=== PATIENT | female | born 1990 | race Caucasian/White ===

== ENCOUNTER 2019-07-25 09:03 | Emergency (ER) | payer MEDICAID ==
--- NOTE | 2019-07-25 10:06 | ED Physician Documentation ---
PD HPI HEENT - Stated complaint Stated Complaint: LT EAR BLEEDING - Chief complaint Chief Complaint: Heent - History obtained from History obtained from: Patient, Friend - History of Present Illness Timing - onset: How many weeks ago (3) Timing - duration: Weeks (3) Timing - details: Gradual onset, Still present Location: Left ear Worsens: Other (q-tip the ear) Associated symptoms: Congestion, Headache, Other (tooth ache on the other side) Similar symptoms before: Diagnosis (OE and OM) Recently seen: Not recently seen - Additional information Additional information: 29-year-old female who is 7 weeks went swimming about 1 month ago with her family and following that she began to get some issue with drainage from her left ear. She is had this happen to her previously with exposure to water. She states that she has some very tender area if she tries to stick a Q-tip deep in her left ear and so she has been avoiding this. She has been having some drainage and some foul smell on her pillow. Today she woke up with blood from the left ear. She acknowledges some muffled hearing.She is not otherwise having symptoms associated with her with the exception of some morning sickness and she has not had an ultrasound with this . Review of Systems Constitutional: reports: Fatigue. denies: Fever Eyes: denies: Decreased vision Ears: reports: Loss of hearing, Ear pain, Drainage/discharge Nose: reports: Congestion. denies: Rhinorrhea / runny nose Throat: denies: Sore throat Cardiac: denies: Chest pain / pressure Respiratory: denies: Dyspnea, Cough GI: reports: Nausea, Vomiting : denies: Dysuria, Frequency PD PAST MEDICAL HISTORY - Present Medications Home Medications: Ambulatory Orders Medication Instructions Recorded Confirmed Amoxicillin 875 mg PO BID #14 tablet 07/25/19 Neomycin/Polymyx/Hc Otic Drops 4 drops LEFTEAR TID #1 bottle 07/25/19 [Cortisporin Ear Susp] - Allergies Allergies/Adverse Reactions: Allergies Allergy/AdvReac Type Severity Reaction Status Date / Time oxycodone Allergy Emesis Verified 07/25/19 09:34 - Social History Smoking Status: Current every day smoker PD ED PE NORMAL - Vitals Vital signs reviewed: Yes (hypertensive ) - General General: Alert and oriented X 3, No acute distress, Well developed/nourished - HEENT HEENT: Atraumatic, PERRL, EOMI, Other (The right TM and canal are normal The left canal has some proud flesh protruding with evidence of recent bleeding. The fleshy mass obscurs the canal and the TM is not visualized. ) - Neck Neck: Supple, no meningeal sign, No bony TTP - Cardiac Cardiac: RRR, No murmur - Respiratory Respiratory: No respiratory distress, Clear bilaterally - Abdomen Abdomen: Soft, Non tender - Back Back: No CVA TTP, No spinal TTP - Derm Derm: Normal color, Warm and dry, No rash - Extremities Extremities: No deformity, No edema - Neuro Neuro: Alert and oriented X 3, dot net developer 2-12 intact, No motor deficit, No sensory deficit, Normal speech Eye Opening: Spontaneous Motor: Obeys Commands Verbal: Oriented GCS Score: 15 - Psych Psych: Normal mood, Normal affect Results - Vitals Vitals: Vital Signs - 24 hr 07/25/19 09:27 Temperature 36.2 C L Heart Rate 73 Respiratory 16 Rate Blood Pressure 142/93 H O2 Saturation 98 Oxygen O2 Source Room air Procedures - Bedside sono Bedside sono by EMP: With use of bedside ultrasound the uterus is imaged there is a gestational sac measuring 9 weeks there is a pole and I believe there is heart rate as well. - IVC sono (time) 1000 Bedside IVC sono: IVC measures (cm) (1.55), Euvolemia PD MEDICAL DECISION MAKING - ED course Complexity details: reviewed results, re-evaluated patient, considered differential, d/w patient, d/w family ED course: 29 y/o female with left ear pain has a fleshy mass protruding from the ear canal. Not just an OE on exam. I suspect this is something the patient will need to have removed and we will treat with drops for OE and refer to ENT for follow up. She has tooth ache on the right as well and we will place her on some amoxicillin as well. Departure - Departure Disposition: 01 Home, Self Care Clinical Impression: Growth of ear canal, Pain, dental Otitis externa Qualifiers: Otitis externa type: unspecified type Chronicity: acute Laterality: left Qualified Code(s): H60.502 - Unspecified acute noninfective otitis externa, left ear Condition: Stable Instructions: ED Tooth Pain, ED Otitis Externa Follow-Up: [facility] [Provider Group] Prescriptions: Amoxicillin 875 mg PO BID #14 tablet Neomycin/Polymyx/Hc Otic Drops [Cortisporin Ear Susp] 4 drops LEFTEAR TID #1 bottle Comments: Today on exam there is a fleshy "mass" in the ear canal and this will need to be addressed by the ENT. You will need to make an appointment with ENT for the coming week.
[2019-07-25 10:26] VITALS: BP 166/104
== END 2019-07-25 10:25 | disposition home or self-care (01) ==
LOC: ED 09:03
DX: O99.89 Other specified diseases and conditions complicating pregnancy, childbirth and the puerperium (principal); H93.8X2 Other specified disorders of left ear; H60.502 Unspecified acute noninfective otitis externa, left ear; O99.611 Diseases of the digestive system complicating pregnancy, first trimester; K08.89 Other specified disorders of teeth and supporting structures; O99.331 Smoking (tobacco) complicating pregnancy, first trimester; Z3A.09 9 weeks gestation of pregnancy
CPT/HCPCS: 99282; 99284

== ENCOUNTER 2019-08-07 12:46 | Outpatient (CLI) | payer MEDICAID ==
--- NOTE | 2019-08-07 15:50 | Ultrasound Report ---
Reason: TEST POSITIVE Procedure Date: 08/07/2019 Accession Number: [id number] / [id number] Procedure: US - OB First Trimester CPT Code: FULL RESULT: EXAM: FIRST TRIMESTER OBSTETRIC ULTRASOUND (Less than 11 weeks) EXAM DATE: 08/07/2019 01:45 PM. CLINICAL HISTORY: test positive. LMP: Unknown. COMPARISONS: None. TECHNIQUE: Transabdominal and transvaginal ultrasound examination with static image documentation. CLINICAL DATES: EGA 9 weeks 6 days with KAREN 03/05/2020 based on LMP. ASSESSMENT: Gestational Sac: Single intrauterine. Mean gestational sac diameter: 48.6 mm = 10 weeks 4 days. Embryo: CRL (crown-rump length) 43.3 mm = 11 weeks 1 day. Cardiac activity: 163 beats per minute. Yolk sac: 4 mm. Amniotic fluid: Not accurately assessed at this gestational age. Early placenta: Not visible at this gestational age. Other: No perigestational fluid collection demonstrated. MATERNAL STRUCTURES: Uterus: Anteverted/Retroverted. Unremarkable. Cervix: Closed. Right Ovary/Adnexa: The ovary measures 2.1 x 1.3 x 1.5 cm, volume 2.2 cc. Unremarkable. Left Ovary/Adnexa: The ovary measures 3.0 x 2.3 x 1.9 cm, volume 10.4 cc. There is a benign-appearing nonvascular round left ovarian cyst measuring 17 x 17 x 19 mm diameter. Free Fluid: None. Other: None. IMPRESSION: 1. Single viable intrauterine at EGA 11 weeks 1 day with KAREN 02/25/2020 based on crown-rump length, which is almost 2 weeks greater than clinical dates. 2. Assigned dating is KAREN 02/25/2020 based on current ultrasound. RADIA
== END 2019-08-07 12:47 | disposition home or self-care (01) ==
LOC: DI 12:46
PROVIDERS: ATTEND Obstetrics & Gynecology
DX: Z32.01 Encounter for pregnancy test, result positive (principal)
CPT/HCPCS: 76801

== ENCOUNTER 2019-08-19 08:00 | Outpatient (CLI) | payer MEDICAID ==
[2019-08-19 22:19] LABS: TRICHOMONAS VAGINALIS DNA NEGATIVE (NEGATIVE)
== END 2019-08-19 23:59 | disposition home or self-care (01) ==
LOC: LAB.R 08:00
PROVIDERS: ATTEND Obstetrics & Gynecology
DX: Z12.4 Encounter for screening for malignant neoplasm of cervix (principal)
CPT/HCPCS: 87491; 87591; 87661

== ENCOUNTER 2019-08-28 14:42 | Outpatient (CLI) | payer MEDICAID | END 2019-08-28 14:43 | disposition home or self-care (01) | LOC: LAB 14:42 | PROVIDERS: ATTEND Obstetrics & Gynecology | DX: O34.211 Maternal care for low transverse scar from previous cesarean delivery (principal); Z13.79 Encounter for other screening for genetic and chromosomal anomalies; Z12.4 Encounter for screening for malignant neoplasm of cervix ==

== ENCOUNTER 2019-09-02 13:36 | Outpatient (CLI) | payer MEDICAID ==
[2019-09-02 19:04] LABS: BASOPHILS % (AUTO) 0.4 %; EOSINOPHILS # (AUTO) 0.1 10^3/uL (0.0-0.7); EOSINOPHILS % (AUTO) 0.8 %; HGB - HEMOGLOBIN 11.2 g/dL (12.0-16.0); LYMPHOCYTES # (AUTO) 2.1 10^3/uL (1.5-3.5); LYMPHOCYTES % (AUTO) 24.6 %; MEAN CORPUSCULAR HEMOGLOBIN 29.5 pg (27.0-31.0); MEAN CORPUSCULAR HGB CONC 32.8 g/dL (32.0-36.0); MEAN CORPUSCULAR VOLUME 89.7 fL (81.0-99.0); MEAN PLATELET VOLUME 8.9 fL (7.9-10.8); MONOCYTES # (AUTO) 0.4 10^3/uL (0.0-1.0); MONOCYTES % (AUTO) 4.9 %; NEUTROPHILS # (AUTO) 5.9 10^3/uL (1.5-6.6); NEUTROPHILS % (AUTO) 68.9 %; PLT - PLATELET COUNT 323 10^3/uL (130-450); RED CELL DISTRIBUTION WIDTH 12.8 % (12.0-15.0); WHITE BLOOD COUNT 8.6 x10^3/uL (4.8-10.8)
[2019-09-03 12:44] LABS: HEPATITIS B SURFACE ANTIGEN NON-REACTIVE (NON-REACTIVE)
[2019-09-03 15:26] LABS: HIV AG/AB 4TH GEN NON-REACTIVE (NON-REACTIVE)
== END 2019-09-02 23:59 | disposition home or self-care (01) ==
LOC: LAB.N 13:36
PROVIDERS: ATTEND Obstetrics & Gynecology
DX: O34.211 Maternal care for low transverse scar from previous cesarean delivery (principal); Z13.79 Encounter for other screening for genetic and chromosomal anomalies
CPT/HCPCS: 36415; 81599; 85025; 86762; 86850; 86900; 86901; 87340; 87389

== ENCOUNTER 2019-09-17 13:20 | Outpatient (CLI) | payer MEDICAID | END 2019-09-17 23:59 | disposition home or self-care (01) | LOC: LAB.R 13:20 | PROVIDERS: ATTEND Family Medicine | DX: H60.62 Unspecified chronic otitis externa, left ear (principal) | CPT/HCPCS: 87070; 87075; 87205 ==

== ENCOUNTER 2019-10-09 14:09 | Outpatient (CLI) | payer MEDICAID ==
--- NOTE | 2019-10-12 10:11 | Ultrasound Report ---
Reason: HX OF LEEP Procedure Date: 10/09/2019 Accession Number: [id number] / [id number] Procedure: US - OB Transvaginal CPT Code: Final Report FULL RESULT: EXAM: LIMITED OBSTETRICAL ULTRASOUND EXAM DATE: 10/09/2019 03:10 PM. CLINICAL HISTORY: HX OF LEEP. COMPARISON: OB FIRST TRIMESTER 08/07/2019 12:52 PM. TECHNIQUE: Real-time sonographic evaluation of the fetus performed by the slip cover sewer. Multiple phlebotomy services representative static images were saved for review. Additional transvaginal imaging to more accurately evaluate the cervix. DATING: Established EGA 20 weeks 1 day with KAREN 02/25/2020. GENERAL EVALUATION [place] . Cardiac activity: 158 bpm. movement: Visualized. Presentation: Variable. Placenta: Posterior position without previa. Amniotic fluid: Subjectively normal. ANATOMY Limited evaluation; no gross abnormality. MATERNAL STRUCTURES Cervix is closed measuring 3.3 cm length transvaginally. IMPRESSION: 1. [place] live intrauterine with gestational age 20 weeks 1 day based on established KAREN. 2. Cervix is closed measuring 3.3 cm. RADIA
== END 2019-10-09 14:10 | disposition home or self-care (01) ==
LOC: DI 14:09
PROVIDERS: ATTEND Nurse Practitioner Obstetrics & Gynecology
DX: Z98.890 Other specified postprocedural states (principal)
CPT/HCPCS: 76817

== ENCOUNTER 2019-11-27 10:25 | Outpatient (CLI) | payer MEDICAID ==
--- NOTE | 2019-11-29 22:36 | Ultrasound Report ---
Reason: SCREENING Procedure Date: 11/27/2019 Accession Number: [id number] / [id number] Procedure: US - OB Detailed Eval CPT Code: Final Report FULL RESULT: EXAM: COMPLETE OBSTETRICAL ULTRASOUND EXAM DATE: 11/27/2019 10:29 AM. CLINICAL HISTORY: anatomic survey. COMPARISON: 10/09/2019. TECHNIQUE: Real-time sonographic evaluation of the fetus performed by the survey chief. Multiple client care representative static images were saved for review. Additional transvaginal imaging to more accurately evaluate cervical length/placental position/etc. DATING: Established EGA 27 weeks 1 day with KAREN 02/25/2020 based on stated dates. EGA 25 weeks 4 days with KAREN 03/05/2020 based on LMP. EGA 26 weeks 6 days with KAREN 02/27/2020 based on the current ultrasound. GENERAL EVALUATION [place] . Cardiac activity: 140 bpm. movement: Visualized. Presentation: Cephalic. Placenta: Posterior position. No evidence for previa. Umbilical cord: 3 vessel cord. Central placental cord origin. Amniotic fluid: Subjectively normal. MVP 4.7 cm. BIOMETRY Bi-Parietal Diameter (BPD): 6.4 cm, 26 weeks 0 days Head Circumference (HC): 24.2 cm, 26 weeks 2 days Abdominal Circumference (AC): 23.4 cm, 27 weeks 5 days Femur Length (FL): 5.0 cm, 26 weeks 6 days Estimated Weight: 1036 g, 38.5 percentile for 27 weeks 1 day. ANATOMY The intracranial structures, profile, face/nose/lips, 4 chamber heart and outflow tracts, stomach, diaphragm, kidneys, and bladder were visualized and demonstrate no abnormality. Images of abdominal wall/cord insertion, spine, and extremities were obtained but were suboptimal due to patient's body habitus, position, and late gestational age. MATERNAL STRUCTURES Uterus: Unremarkable. Cervix: Long and closed. Transabdominal length 3.3 cm. Right ovary/adnexa: Ovary not seen due to body habitus and late gestational age. No adnexal abnormality. Left ovary/adnexa: Ovary not seen due to body habitus and late gestational age. No adnexal abnormality. Free fluid: None. IMPRESSION: 1. [place] live intrauterine with gestational age 27 weeks 1 day based on initial ultrasound. 2. Estimated weight is within expected limits for assigned dating. 3. No anatomic abnormalities are detected at this time. Some anatomy was suboptimally visualized due to patient's body habitus, position, and late gestational age. These areas include abdominal wall/cord insertion, spine, and extremities. RADIA
== END 2019-11-27 10:26 | disposition home or self-care (01) ==
LOC: DI 10:25
PROVIDERS: ATTEND Nurse Practitioner Obstetrics & Gynecology
DX: Z34.82 Encounter for supervision of other normal pregnancy, second trimester (principal)
CPT/HCPCS: 76811

== ENCOUNTER 2019-12-18 14:09 | Outpatient (CLI) | payer MEDICAID ==
[2019-12-18 18:33] LABS: HGB - HEMOGLOBIN 10.6 g/dL (12.0-16.0); MEAN CORPUSCULAR HEMOGLOBIN 28.7 pg (27.0-31.0); MEAN CORPUSCULAR HGB CONC 32.4 g/dL (32.0-36.0); MEAN CORPUSCULAR VOLUME 88.6 fL (81.0-99.0); MEAN PLATELET VOLUME 9.1 fL (7.9-10.8); RED BLOOD COUNT 3.69 10^6/uL (4.20-5.40); RED CELL DISTRIBUTION WIDTH 13.1 % (12.0-15.0); WHITE BLOOD COUNT 11.1 x10^3/uL (4.8-10.8)
== END 2019-12-18 23:59 | disposition home or self-care (01) ==
LOC: LAB.N 14:09
PROVIDERS: ATTEND Nurse Practitioner Obstetrics & Gynecology
DX: Z36.89 Encounter for other specified antenatal screening (principal)
CPT/HCPCS: 36415; 82950; 85027; 86850

== ENCOUNTER 2020-01-14 07:00 | Outpatient (CLI) | payer MEDICAID ==
[2020-01-14 20:33] LABS: CANDIDA GROUP DNA POSITIVE (NEGATIVE); CANDIDA KRUSEI DNA NEGATIVE (NEGATIVE); TRICHOMONAS VAGINALIS DNA NEGATIVE (NEGATIVE)
== END 2020-01-14 23:59 | disposition home or self-care (01) ==
LOC: LAB.R 07:00
PROVIDERS: ATTEND Obstetrics & Gynecology
DX: N89.8 Other specified noninflammatory disorders of vagina (principal)
CPT/HCPCS: 87661; 87801

== ENCOUNTER 2020-01-28 07:00 | Outpatient (CLI) | payer MEDICAID ==
[2020-01-29 20:40] LABS: TRICHOMONAS VAGINALIS DNA NEGATIVE (NEGATIVE)
== END 2020-01-28 23:59 | disposition home or self-care (01) ==
LOC: LAB.R 07:00
PROVIDERS: ATTEND Obstetrics & Gynecology
DX: Z34.82 Encounter for supervision of other normal pregnancy, second trimester (principal); Z36.89 Encounter for other specified antenatal screening
CPT/HCPCS: 87491; 87591; 87661; 87797

== ENCOUNTER 2020-02-18 08:00 | Outpatient (CLI) | payer MEDICAID ==
[2020-02-18 12:01] LABS: CREATININE,URINE 123.1 mg/dL; PROTEIN/CREATININE RATIO,URINE 0.1 (<=0.2)
[2020-02-18 12:07] LABS: HGB - HEMOGLOBIN 11.5 g/dL (12.0-16.0); MEAN CORPUSCULAR HEMOGLOBIN 28.5 pg (27.0-31.0); MEAN CORPUSCULAR HGB CONC 32.6 g/dL (32.0-36.0); MEAN CORPUSCULAR VOLUME 87.4 fL (81.0-99.0); MEAN PLATELET VOLUME 9.2 fL (7.9-10.8); RED BLOOD COUNT 4.04 10^6/uL (4.20-5.40); RED CELL DISTRIBUTION WIDTH 13.2 % (12.0-15.0); WHITE BLOOD COUNT 10.9 x10^3/uL (4.8-10.8)
[2020-02-18 12:16] LABS: ALBUMIN 3.1 g/dL (3.2-5.5); ALBUMIN/GLOBULIN RATIO 0.7 (1.0-2.2); BILIRUBIN,TOTAL 0.4 mg/dL (0.2-1.0); CREATININE 0.6 mg/dL (0.4-1.0); TOTAL PROTEIN 7.4 g/dL (6.7-8.2)
== END 2020-02-18 23:59 | disposition home or self-care (01) ==
LOC: LAB.WCP 08:00
PROVIDERS: ATTEND Obstetrics & Gynecology
DX: O13.9 Gestational [pregnancy-induced] hypertension without significant proteinuria, unspecified trimester (principal)
CPT/HCPCS: 36415; 80053; 82570; 84156; 85027

== ENCOUNTER 2020-02-24 05:59 | Inpatient (IN) | payer MEDICAID ==
--- NOTE | 2020-02-16 15:22 | CONSULTATION NOTE ---
Consultation Report: Anesthesia consult requested for BMI 53.0 (5'2", 290#)on repeat C/S who is also desiring sterilization. Phone conversation with pt vs in person given current situation with C-19 precautions. Pt sounds pleasant upon introduction. Upcoming C/S will be her third with the first two being uneventful except a difficult spinal placement with #1. Pt stated she was awake for both deliveries and denied complications during either event. Pt denies smoke/drink/drugs. Borderline hypertension with this . States she will have PIH labs drawn tomorrow and was told her C/S may be moved up based on those results. Denies heart or lung issues, no thyroid disease, and no DM. Pt denied any bleeding disorders, no regular home meds, and only allergy stated as oxycodone. Pt had no further questions at the conclusion of the interview. Pt informed that she can call anytime with any further questions/concerns.
[2020-02-24] MEDS ORDERED: LACTATED RINGERS 1,000 ML IV SCH ×2 (06:30→11:00)
[2020-02-24 06:45] LABS: BASOPHILS # (AUTO) 0.1 10^3/uL (0.0-0.1); BASOPHILS % (AUTO) 0.6 %; EOSINOPHILS # (AUTO) 0.2 10^3/uL (0.0-0.7); EOSINOPHILS % (AUTO) 1.4 %; HGB - HEMOGLOBIN 10.6 g/dL (12.0-16.0); LYMPHOCYTES # (AUTO) 2.6 10^3/uL (1.5-3.5); LYMPHOCYTES % (AUTO) 24.6 %; MEAN CORPUSCULAR HEMOGLOBIN 28.5 pg (27.0-31.0); MEAN CORPUSCULAR HGB CONC 32.5 g/dL (32.0-36.0); MEAN CORPUSCULAR VOLUME 87.6 fL (81.0-99.0); MEAN PLATELET VOLUME 9.1 fL (7.9-10.8); MONOCYTES # (AUTO) 0.6 10^3/uL (0.0-1.0); MONOCYTES % (AUTO) 6.2 %; NEUTROPHILS # (AUTO) 6.9 10^3/uL (1.5-6.6); NEUTROPHILS % (AUTO) 66.6 %; PLT - PLATELET COUNT 289 10^3/uL (130-450); RED BLOOD COUNT 3.72 10^6/uL (4.20-5.40); RED CELL DISTRIBUTION WIDTH 13.7 % (12.0-15.0); WHITE BLOOD COUNT 10.4 x10^3/uL (4.8-10.8)
[2020-02-24] MEDS ORDERED: LACTATED RINGERS 1,000 ML IV ONE ×3 (06:49→09:35)
[2020-02-24] MEDS ORDERED: ceFAZolin 3 GM in SODIUM CHLORIDE 0.9% 100ML 100 ML IV ONE ×2 (07:00→07:19)
[2020-02-24] MEDS ORDERED: ACETAMINOPHEN 1,000 MG/100 ML 100 ML IV ONE (07:00)
[2020-02-24] MEDS ORDERED: CITRIC ACID/SODIUM CITRATE 15 ML UDC PO SCH (07:19)
[2020-02-24] MEDS ORDERED: METHYLERGONOVINE 0.2 MG/ML VIAL ONE (07:28)
[2020-02-24] MEDS ORDERED: CARBOPROST TROMETHAMINE 250 MCG/ML AMP IM ONE (07:28)
[2020-02-24] MEDS ORDERED: fentaNYL 100 MCG/2 ML VIAL IVP ONE (07:46)
[2020-02-24] MEDS ORDERED: ONDANSETRON 4 MG/2 ML VIAL IVP ONE (07:46)
[2020-02-24] MEDS ORDERED: GLYCOPYRROLATE 1 MG/5 ML VIAL IVP ONE (07:46)
[2020-02-24] MEDS ORDERED: PHENYLEPHRINE 10 MG/ML VIAL IV ONE (07:46)
[2020-02-24] MEDS ORDERED: KETOROLAC 30 MG/ML VIAL IVP ONE (07:46)
[2020-02-24] MEDS ORDERED: MORPHINE PF 5 MG/10 ML AMP EP ONE (07:46)
--- NOTE | 2020-02-24 07:52 | ANESTHESIA ---
Pre-Anesthesia VS, & Labs - Diagnosis repeat C/C, desires sterilization - Procedure Section, bilateral salphingectomy Vital Signs: Temp Pulse Resp BP Pulse Ox 36.9 C 78 20 134/83 H 100 02/24/20 06:22 02/24/20 06:22 02/24/20 06:22 02/24/20 06:22 02/24/20 06:22 Height 5 ft 2 in Weight (kg) 134.989 kg Body Mass Index 48.2 - NPO >8 hours - Is Patient ?: Yes - Lab Results Current Lab Results: Laboratory Tests 02/24/20 06:30: WBC 10.4, RBC 3.72 L, Hgb 10.6 L, Hct 32.6 L, MCV 87.6, MCH 28.5, MCHC 32.5, RDW 13.7, Plt Count 289, MPV 9.1, Neut # (Auto) 6.9 H, Lymph # (Auto) 2.6, [place] # (Auto) 0.6, Eos # (Auto) 0.2, Baso # (Auto) 0.1, Absolute Nucleated RBC 0.00, Nucleated RBC % 0.0 Fish Bones: 02/24/20 06:30 Home Medications and Allergies Active Medications Citric Acid/Sodium Citrate (Bicitra) 30 ml PO ONCE NEMO Stop: 02/24/20 09:00 Lactated Ringer's (Lr) 1,000 mls @ 125 mls/hr IV .Q8H NEMO Last Admin: 02/24/20 06:50 Dose: 125 mls/hr Allergies/Adverse Reactions: Allergies Allergy/AdvReac Type Severity Reaction Status Date / Time oxycodone Allergy Emesis Verified 07/25/19 09:34 Anes History & Medical History - Anesthetic History Anesthesia Complications: reports: No previous complications - Medical History Cardiovascular: reports: None Pulmonary: reports: None Gastrointestinal: reports: GERD Urinary: reports: None Neuro: reports: None Musculoskeletal: reports: None Endocrine/Autoimmune: reports: None Blood Disorders: reports: Anemia Skin: reports: None Smoking Status: Former smoker - Surgical History Gynecologic: section Exam General: Alert, Oriented x3 Dental: WNL Mouth Opening: Greater than 4 Fingerbreadths Neck Mobility: Normal Mallampati classification: II Thyromental Distance: greater than 6 cm Respiratory: Lungs clear Cardiovascular: Regular rate Plan Anesthesia Type: Spinal Consent for Procedure(s) Verified and Reviewed: Yes Code Status: Attempt Resuscitation ASA classification: 2-Mild systemic disease Is this case an emergency?: No
[2020-02-24] MEDS ORDERED: diphenhydrAMINE 25 MG CAPSULE PO PRN (10:10)
--- NOTE | 2020-02-24 10:26 | OPERATIVE REPORT ---
Operative Report - General Admit Date: 02/24/20 Procedure Date: 02/24/20 Planned Procedure: Repeat LTC/S Bilateral Salpingectomy Pre-Op Diagnosis: Repeat LTC/S Bilateral Salpingectomy Procedure Performed: Repeat LTC/S Bilateral Salpingectomy Post Op Diagnosis: Repeat LTC/S Bilateral Salpingectomy - Procedure Note Primary Surgeon: Ever Phelps MD Secondary Surgeon: Brianna CALHOUN, Kristen Lyle MD Anesthesia Provider: Freedom Cochran CRNA Anesthesia Technique: Spinal Pathology: Bilateral Salpingectomy IV Fluids (mL): 1,400 Estimated Blood Loss (mL): 500 Urine Output (mL): 200 Indications: Repeat LTC/S Bilateral Salpingectomy Findings: live male 6lb 14oz Complications: Live male 6 lb 14oz - Other Other Information/Narrative: [id number]
[2020-02-24] MEDS: ACETAMINOPHEN 500 MG TABLET PO SCH ×2 (10:50→18:52)
[2020-02-24] MEDS: KETOROLAC 30 MG/ML VIAL IVP SCH ×4 (10:51→20:41)
--- NOTE | 2020-02-24 11:23 | OPERATIVE REPORT ---
DATE OF SERVICE: 02/24/2020 Physician: Ever Phelps MD PREOPERATIVE DIAGNOSES 1. A 39-week cyesis. 2. Previous section. 3. Undesired fertility. POSTOPERATIVE DIAGNOSES 1. A 39-week cyesis. 2. Previous section. 3. Undesired fertility. PROCEDURE PERFORMED: Repeat low transverse section with bilateral salpingectomy. SURGEON: Ever Phelps MD CIVIL ENGINEERING PROJECT DESIGNER: AURORA Brewer/UNIQUE. THIRD COTTON FACTOR: Marjorie Lyle MD ANESTHESIA PROVIDER: MARIYA Bowles ANESTHETIC: Spinal. ESTIMATED BLOOD LOSS: 500 mL IV FLUIDS: 1400 mL URINE OUTPUT: 200 mL FINDINGS: Upon entering the abdominal cavity, there was a live male infant, vertex presentation with clear amniotic fluid. The tubes and ovaries appeared to be free of any disease. There were minimal adhesions noted considering she had 2 previous sections. MATERIALS TO PATHOLOGY: Bilateral tubes. PROCEDURE IN DETAIL: Following adequate spinal anesthesia, patient was placed in the supine position with a roll under the right hip. At this point, she developed some hypotension, which was treated with IV fluids as well as raising her legs. Her symptoms resolved. At this point, she had her pannus taped up with cloth tape and then she was prepped and draped in the usual fashion. A timeout was then performed and then a Pfannenstiel incision was carried down through the old scar. The incision was carried laterally. The fascia was exposed and then incised and carried laterally with Thomas scissors. Then utilizing both blunt and sharp dissection, the fascia was elevated from the rectus. The rectus was then split along the midline high. Care was taken to avoid any injury to bowel, bladder, or abdominal contents. At this point, a self-retaining retractor was placed, and then a bladder flap was developed using Metzenbaums. A low transverse uterine incision was accomplished utilizing a #10 blade, bandage scissors, as well as finger spread technique. Amniotic fluid membranes were then ruptured. Clear amniotic fluid was encountered. The head of the infant was noted to be left occiput anterior, it was delivered out through the incision. The remainder of the infant was delivered without difficulty. The cord was doubly clamped after allowing it to pulsate for 30 seconds, it was then divided. The infant was handed to the nursery team that was standing by. At this point, the placenta was manually delivered. The uterus was exteriorized, wrapped in a moist lap, and cleansed in the internal portion with dry lap. The incision itself was then closed using a running locking suture of 0 Vicryl with an imbricating layer of 0 Vicryl. The incision was hemostatic at this time. At this point, the cul-de-sac was irrigated. No further bleeding was noted, the estimated blood loss was ascertained. The right fallopian tube was then grasped with 2 Babcocks and the mesosalpinx was cauterized and transected with the LigaSure. There was evidence of good hemostasis on the right hand side. The left-hand side was treated in an identical fashion, the tube was grasped with Babcocks, and then the mesosalpinx was cauterized and transected. The ovarian vessels were noted to be free of any bleeding. Uterus was then delivered back in abdominal cavity. Gutters were irrigated. Incision itself was inspected for bleeding. Small bleeders were treated with electrocautery. No further blood loss was noted at this point. Peritoneum was closed utilizing 2-0 Vicryl. The rectus itself was somewhat splayed, and there was a large diastasis, and it was felt that by closing these it would have a tendency to rupture the rectus and therefore, this was not done. The fascia was then closed utilizing looped PDS. Subcutaneous tissue was irrigated and cautery was used for hemostasis. This was then closed with 2-0 Vicryl. The incision itself was then closed using 4-0 Monocryl. A wound VAC was then placed with evidence of good seal. At this point, the uterus was expressed, and no further clots were removed. Patient tolerated the procedure well and was taken to recovery in stable condition. Sponge and needle counts were correct. Brianna Nieves's with retraction, hemostasis and fundal pressure were instrumental to the performance of this procedure. TD: 02/24/2020 11:03 ALLEN
[2020-02-24] MEDS: oxyCODONE 5 MG TABLET PO PRN ×3 (11:25→20:42)
[2020-02-24] MEDS: SODIUM CHLORIDE FLUSH 0.9% 10 ML SYRINGE IVP SCH ×4 (14:24→22:36)
[2020-02-24] MEDS ORDERED: ONDANSETRON 4 MG/2 ML VIAL IVP PRN (16:08)
[2020-02-24] MEDS: ENOXAPARIN 40 MG/0.4 ML SYRINGE SUBQ SCH (16:40)
[2020-02-24] MEDS: SIMETHICONE CHEW 80 MG TABLET PO SCH ×2 (18:52→19:23)
[2020-02-24] MEDS: SODIUM CHLORIDE FLUSH 0.9% 10 ML SYRINGE IVP PRN (20:42)
[2020-02-24] MEDS: DOCUSATE SODIUM 100 MG CAPSULE PO SCH (20:51)
[2020-02-24] MEDS: ONDANSETRON 4 MG/2 ML VIAL IVP PRN (22:36)
[2020-02-25] MEDS: oxyCODONE 5 MG TABLET PO PRN ×6 (00:22→21:46)
[2020-02-25] MEDS: ACETAMINOPHEN 500 MG TABLET PO SCH ×3 (02:49→20:04)
[2020-02-25] MEDS: SODIUM CHLORIDE FLUSH 0.9% 10 ML SYRINGE IVP PRN ×2 (02:50→04:33)
[2020-02-25] MEDS: SODIUM CHLORIDE FLUSH 0.9% 10 ML SYRINGE IVP SCH (02:50)
[2020-02-25] MEDS: KETOROLAC 30 MG/ML VIAL IVP SCH (02:50)
[2020-02-25] MEDS: ONDANSETRON 4 MG/2 ML VIAL IVP PRN (04:32)
[2020-02-25 05:34] LABS: BASOPHILS % (AUTO) 0.3 %; EOSINOPHILS # (AUTO) 0.2 10^3/uL (0.0-0.7); EOSINOPHILS % (AUTO) 1.8 %; HGB - HEMOGLOBIN 9.7 g/dL (12.0-16.0); LYMPHOCYTES # (AUTO) 2.9 10^3/uL (1.5-3.5); LYMPHOCYTES % (AUTO) 30.4 %; MEAN CORPUSCULAR HEMOGLOBIN 28.8 pg (27.0-31.0); MEAN CORPUSCULAR HGB CONC 32.6 g/dL (32.0-36.0); MEAN CORPUSCULAR VOLUME 88.4 fL (81.0-99.0); MEAN PLATELET VOLUME 9.1 fL (7.9-10.8); MONOCYTES # (AUTO) 0.6 10^3/uL (0.0-1.0); NEUTROPHILS # (AUTO) 5.8 10^3/uL (1.5-6.6); PLT - PLATELET COUNT 237 10^3/uL (130-450); RED BLOOD COUNT 3.37 10^6/uL (4.20-5.40); RED CELL DISTRIBUTION WIDTH 13.7 % (12.0-15.0); WHITE BLOOD COUNT 9.6 x10^3/uL (4.8-10.8)
--- NOTE | 2020-02-25 08:22 | PROVIDER PROGRESS NOTE ---
Subjective - General Admit Date: 02/24/20 Procedure Date: 02/24/20 Post Op Days: 1 Procedure Performed: PLTC/S BS - Review of Systems Wound/Incisions: positive: Dressing dry and intact Objective - Patient Data Reviewed Vital Signs: Yes Vital Signs: Vital Signs x48h Temp Pulse Resp BP Pulse Ox 02/25/20 04:41 36.7 C 72 18 115/62 98 Weight: Weight 02/23/20 02/24/20 02/25/20 23:59 23:59 23:59 Weight (kg) 134.989 kg Intake & Output: Intake and Output Totals x24h 02/23/20 02/24/20 02/25/20 23:59 23:59 23:59 Intake Total 1000 Output Total 975 515 Balance 25 -515 - Lab Results Lab Results: 02/25/20 05:25 Other Lab Results: Lab Results x24hrs 02/25/20 02/25/20 02/24/20 Range/Units 05:25 05:25 06:30 WBC 9.6 (4.8-10.8) x10^3/uL RBC 3.37 L (4.20-5.40) 10^6/uL Hgb 9.7 L (12.0-16.0) g/dL Hct 29.8 L (37.0-47.0) % MCV 88.4 (81.0-99.0) fL MCH 28.8 (27.0-31.0) pg MCHC 32.6 (32.0-36.0) g/dL RDW 13.7 (12.0-15.0) % Plt Count 237 (130-450) 10^3/uL MPV 9.1 (7.9-10.8) fL Neut # (Auto) 5.8 (1.5-6.6) 10^3/uL Lymph # (Auto) 2.9 (1.5-3.5) 10^3/uL [place] # (Auto) 0.6 (0.0-1.0) 10^3/uL Eos # (Auto) 0.2 (0.0-0.7) 10^3/uL Baso # (Auto) 0.0 (0.0-0.1) 10^3/uL Absolute Nucleated RBC 0.00 x10^3/uL Nucleated RBC % 0.0 /100WBC Blood Type A NEGATIVE A NEGATIVE Weak D (Du) WEAK-D NEGATIVE Antibody Screen POSITIVE Antibody Identification See Comments Maternal Bleed NEGATIVE (NEGATIVE) Crossmatch See Detail Crossmatch IS Only 02/24/20 Range/Units 06:30 WBC (4.8-10.8) x10^3/uL RBC (4.20-5.40) 10^6/uL Hgb (12.0-16.0) g/dL Hct (37.0-47.0) % MCV (81.0-99.0) fL MCH (27.0-31.0) pg MCHC (32.0-36.0) g/dL RDW (12.0-15.0) % Plt Count (130-450) 10^3/uL MPV (7.9-10.8) fL Neut # (Auto) (1.5-6.6) 10^3/uL Lymph # (Auto) (1.5-3.5) 10^3/uL [place] # (Auto) (0.0-1.0) 10^3/uL Eos # (Auto) (0.0-0.7) 10^3/uL Baso # (Auto) (0.0-0.1) 10^3/uL Absolute Nucleated RBC x10^3/uL Nucleated RBC % /100WBC Blood Type Cancelled Weak D (Du) Antibody Screen Cancelled Antibody Identification Cancelled Maternal Bleed (NEGATIVE) Crossmatch See Detail Crossmatch IS Only See Detail - Current Medications Current Medications: Current Medications Generic Name Dose Route Start Last Admin Trade Name Dwight PRN Reason Stop Dose Admin Acetaminophen 1,000 mg 02/24/20 11:00 02/25/20 02:49 Tylenol PO 1,000 mg Q8H NEMO Administration Docusate Sodium 100 mg 02/24/20 21:00 02/24/20 20:51 Colace 100mg Capsule PO 100 mg BID NEMO Administration Enoxaparin Sodium 40 mg 02/24/20 11:00 02/24/20 16:40 Lovenox SUBQ 40 mg DAILY NEMO Administration Lactated Ringer's 1,000 mls @ 100 mls/hr 02/24/20 11:00 02/24/20 19:24 Lr IV Not Given .Q10H NEMO Ondansetron HCl 4 mg 02/24/20 22:40 02/25/20 04:32 Zofran Inj IVP 4 mg Q6H PRN Administration Nausea / Vomiting Oxycodone HCl 5 mg 02/24/20 10:10 02/25/20 04:32 Roxicodone PO 5 mg Q4HR PRN Administration PAIN Simethicone 80 mg 02/24/20 14:00 02/24/20 19:23 Mylicon PO Not Given TID [facility] Sodium Chloride 10 ml 02/24/20 10:10 02/25/20 04:33 Normal Saline Flush 0.9% IVP 10 ml PRN PRN Administration NEEDED PER PROVIDER ORDERS Sodium Chloride 10 ml 02/24/20 17:00 02/25/20 02:50 Normal Saline Flush 0.9% IVP 10 ml 0100,[id number],1700 [facility] Administration - Physical Exam Wound/Incisions: positive: Dressing dry and intact General Appearance: positive: No acute distress, Alert Respiratory: positive: Chest non-tender, No respiratory distress, Breath sounds nml (Distant) Cardiovascular: positive: Regular rate & rhythm, No murmur, No gallop Abdomen: positive: Non-tender (corpulant), Nml bowel sounds Back: negative: CVA tenderness (R), CVA tenderness (L) Neurologic/Psychiatric: positive: Oriented x3 Impression/Plan - Problem List Problem List: POD # 1 progressing Pt is Rh- baby rh+
[2020-02-25] MEDS ORDERED: RHO(D) IMMUNE GLOBULIN 300 MCG SYRINGE IM SCH (08:26)
[2020-02-25] MEDS: DOCUSATE SODIUM 100 MG CAPSULE PO SCH ×2 (08:49→20:04)
[2020-02-25] MEDS: IBUPROFEN 800 MG TABLET PO SCH ×3 (08:49→21:47)
[2020-02-25] MEDS: ONDANSETRON ODT 4 MG TABLET TL PRN ×4 (08:49→21:47)
[2020-02-25] MEDS: SIMETHICONE CHEW 80 MG TABLET PO SCH ×3 (09:09→17:52)
[2020-02-25] MEDS ORDERED: IBUPROFEN 800 MG TABLET PO SCH (10:18)
[2020-02-25] MEDS: ENOXAPARIN 40 MG/0.4 ML SYRINGE SUBQ SCH (16:10)
[2020-02-26] MEDS: ONDANSETRON ODT 4 MG TABLET TL PRN ×3 (01:18→10:32)
[2020-02-26] MEDS: oxyCODONE 5 MG TABLET PO PRN ×3 (01:18→10:33)
[2020-02-26] MEDS: IBUPROFEN 800 MG TABLET PO SCH ×2 (03:45→10:33)
[2020-02-26] MEDS: ACETAMINOPHEN 500 MG TABLET PO SCH (03:46)
[2020-02-26 08:12] VITALS: BP 139/71
[2020-02-26] MEDS: SIMETHICONE CHEW 80 MG TABLET PO SCH (08:41)
[2020-02-26] MEDS: DOCUSATE SODIUM 100 MG CAPSULE PO SCH (08:41)
--- NOTE | 2020-02-26 08:48 | PROVIDER PROGRESS NOTE ---
Subjective - General Admit Date: 02/24/20 Procedure Date: 02/24/20 Post Op Days: 2 Procedure Performed: PLTC/S BS - Review of Systems Wound/Incisions: positive: Dressing dry and intact General: positive: No symptoms (Pain 1-2/10 passing flatus) HEENT: negative: Headaches Objective - Patient Data Reviewed Vital Signs: Yes Vital Signs: Vital Signs x48h Temp Pulse Resp BP Pulse Ox 02/26/20 07:40 36.7 C 71 14 139/71 H 97 02/26/20 06:09 36.7 C 76 16 125/66 98 Weight: Weight 02/24/20 02/25/20 02/26/20 23:59 23:59 23:59 Weight (kg) 134.989 kg Intake & Output: Intake and Output Totals x24h 02/24/20 02/25/20 02/26/20 23:59 23:59 23:59 Intake Total 1000 Output Total 975 795 Balance 25 -795 - Lab Results Lab Results: 02/25/20 05:25 - Current Medications Current Medications: Current Medications Generic Name Dose Route Start Last Admin Trade Name Freq PRN Reason Stop Dose Admin Acetaminophen 1,000 mg 02/24/20 11:00 02/26/20 03:46 Tylenol PO 1,000 mg Q8H NEMO Administration Docusate Sodium 100 mg 02/24/20 21:00 02/26/20 08:41 Colace 100mg Capsule PO 100 mg BID NEMO Administration Enoxaparin Sodium 40 mg 02/24/20 11:00 02/25/20 16:10 Lovenox SUBQ 40 mg DAILY NEMO Administration Lactated Ringer's 1,000 mls @ 100 mls/hr 02/24/20 11:00 02/24/20 19:24 Lr IV Not Given .Q10H NEMO Ibuprofen 800 mg 02/25/20 09:00 02/26/20 03:45 Motrin PO 800 mg Q6H NEMO Administration Ondansetron HCl 4 mg 02/24/20 22:40 02/25/20 04:32 Zofran Inj IVP 4 mg Q6H PRN Administration Nausea / Vomiting Ondansetron HCl 4 mg 02/25/20 08:32 02/26/20 06:22 Zofran Odt TL 4 mg Q4HR PRN Administration Nausea / Vomiting Oxycodone HCl 5 mg 02/24/20 10:10 02/26/20 06:22 Roxicodone PO 5 mg Q4HR PRN Administration PAIN Simethicone 80 mg 02/24/20 14:00 02/26/20 08:41 Mylicon PO 80 mg TID NEMO Administration Sodium Chloride 10 ml 02/24/20 10:10 02/25/20 04:33 Normal Saline Flush 0.9% IVP 10 ml PRN PRN Administration NEEDED PER PROVIDER ORDERS Sodium Chloride 10 ml 02/24/20 17:00 02/25/20 02:50 Normal Saline Flush 0.9% IVP 10 ml 0100,0900,1700 NEMO Administration - Physical Exam Wound/Incisions: positive: Dressing dry and intact General Appearance: positive: No acute distress, Alert Respiratory: positive: Chest non-tender, No respiratory distress, Breath sounds nml Cardiovascular: positive: Regular rate & rhythm, No murmur, No gallop Abdomen: positive: Non-tender, Nml bowel sounds Back: negative: CVA tenderness (R), CVA tenderness (L) Skin: positive: Color nml, No rash Extremities: negative: Calf tenderness, Joint swelling Neurologic/Psychiatric: positive: Oriented x3 Impression/Plan - Problem List Problem List: POD #2 excellent progress Discharge today. reviewed infection, mastitis Pt had Bilateral salpingectomy. Discharge medications Oxycodone 5 mg motrin 800 mg Zofran 4 mg Colace 100 mg RTC one week for wound vac removal.
--- NOTE | 2020-02-26 08:59 | Discharge Plan ---
Discharge Plan Problem Reviewed?: Yes Disposition: Home, Self Care Condition: Good Diet: Regular Activity Restrictions: no driving while taking narcotics Shower Restrictions: No Driving Restrictions: Yes (not while on narcotics) Weight Bearing: Full Weight No Smoking: If you smoke, Please STOP! Call for help. Follow-up with: LEDY LAY MD [Primary Care Provider] -
--- NOTE | 2020-02-26 09:21 | DISCHARGE SUMMARY ---
Physician: Ever Phelps MD DATE OF ADMISSION: 02/24/2020 DATE OF DISCHARGE: 02/26/2020 ADMITTING DIAGNOSES 1. Term cyesis. 2. Previous section. 3. Undesired fertility. 4. Morbid obesity. 5. Rh negative. 6. Anemia. DISCHARGE DIAGNOSES 1. Term cyesis. 2. Previous section. 3. Undesired fertility. PROCEDURES 1. Repeat low transverse section. 2. Bilateral salpingectomy. PRESENTING HISTORY: Patient is a 29-year-old G5, P2 female who on admission was 39 and 5 weeks. She had a history of 2 previous sections, presents for a repeat low transverse section. She also desired having her tubes tied. She had her OB care start at 12 weeks EGA. She had multiple visits. Her laboratories showed her to be negative. She is rubella immune. Her 50 gram Glucola was 74. Her GBS was also negative. LABORATORY DATA: Preoperative hemoglobin was 10.6 postoperatively was 9.7. Platelets initially were 289. Postop, they were 237. HOSPITAL COURSE: The patient admitted and taken to the operating room, at which time a repeat low transverse section was performed without incident. Her tubes were also removed per patient's request. Her postoperative recovery has been unremarkable. She was noted to be Rh negative. Her was noted to be Rh positive; therefore, she received RhoGAM. Because of her obesity, she also received 40 mg of Lovenox 6 hours postop and then again, the second day, Lovenox. She also received IV iron. She is doing well today, and she is requesting to go home. Her pain level is 1/10-2/10. She is utilizing oxycodone as well as Motrin and Zofran. Her wound VAC is functioning well. At this time, she is instructed to follow up in the clinic in 1 week, at which time the wound VAC will be removed. We have discussed as well as the concerns about mastitis. DISCHARGE MEDICATIONS 1. Oxycodone 5 mg. 2. Motrin 800 mg. 3. Zofran 4 mg. 4. Colace 100 mg. TD: 02/26/2020 08:59 MTDD
== END 2020-02-26 11:50 | disposition home or self-care (01) | DRG 785 ==
LOC: FBP 05:59
PROVIDERS: ADMIT Obstetrics & Gynecology; ATTEND Obstetrics & Gynecology
PROC: 0UB70ZZ Excision of Bilateral Fallopian Tubes, Open Approach (ICD-10-PCS; 2020-02-24)
PROC: 10D00Z1 Extraction of Products of Conception, Low, Open Approach (ICD-10-PCS; principal; 2020-02-24 07:30)
DX: O13.4 Gestational [pregnancy-induced] hypertension without significant proteinuria, complicating childbirth (principal); O34.211 Maternal care for low transverse scar from previous cesarean delivery; Z37.0 Single live birth; O99.214 Obesity complicating childbirth; E66.01 Morbid (severe) obesity due to excess calories; O99.02 Anemia complicating childbirth; D64.9 Anemia, unspecified; O75.89 Other specified complications of labor and delivery; Z67.91 Unspecified blood type, Rh negative; Z30.2 Encounter for sterilization; Z3A.39 39 weeks gestation of pregnancy; Z87.410 Personal history of cervical dysplasia; Z87.891 Personal history of nicotine dependence
CPT/HCPCS: 36415; 83033; 85025; 86850; 86870; 86900; 86901; 86922; A9270; J0131; J1650; J2210; J7120; Q0162; 86920

== ENCOUNTER 2021-10-05 08:00 | Outpatient (CLI) | payer MEDICAID ==
[2021-10-05 13:06] LABS: BILIRUBIN,URINE NEGATIVE (NEGATIVE); GLUCOSE, URINE (UA) NEGATIVE (NEGATIVE); KETONES,URINE (UA) NEGATIVE (NEGATIVE); LEUKOCYTE ESTERASE, URINE NEGATIVE (NEGATIVE); NITRITE,URINE NEGATIVE (NEGATIVE); OCCULT BLOOD,URINE NEGATIVE (NEGATIVE); PH,URINE 5.5 PH (5.0-7.5); PROTEIN,URINE NEGATIVE (NEGATIVE); UROBILINOGEN,URINE 0.2 (NORMAL) E.U./dL (NORMAL)
[2021-10-05 13:12] LABS: CLARITY,URINE CLOUDY (CLEAR)
[2021-10-05 13:24] LABS: AMORPHOUS SEDIMENT,UR Marked /LPF; BACTERIA,URINE None Seen /HPF (None Seen); RBC,URINE None Seen /HPF (0-5); SQUAMOUS EPITHELIAL CELL,UR NONE SEEN (<= Few); WBC,URINE 0-3 /HPF (0-5)
== END 2021-10-05 23:59 | disposition home or self-care (01) ==
LOC: LAB.WCP 08:00
PROVIDERS: ATTEND Nurse Practitioner
DX: R53.83 Other fatigue (principal)
CPT/HCPCS: 81001; 87086